=== PATIENT | female | born 1990 | race Caucasian/White ===

== ENCOUNTER 2022-08-13 18:29 | Outpatient (CLI) | payer BC, SELFPAY | END 2022-08-13 18:30 | disposition home or self-care (01) | LOC: LAB 18:32 | PROVIDERS: PCP Obstetrics & Gynecology | DX: Z32.01 Encounter for pregnancy test, result positive (principal) | CPT/HCPCS: 36415; 84702 ==

== ENCOUNTER 2022-08-15 18:14 | Outpatient (CLI) | payer BC, SELFPAY | END 2022-08-15 18:15 | disposition home or self-care (01) | PROVIDERS: PCP Obstetrics & Gynecology; Visit Provider Family Medicine | DX: Z32.01 Encounter for pregnancy test, result positive (principal) | CPT/HCPCS: 36415; 84702 ==

== ENCOUNTER 2022-08-20 17:50 | Emergency (ER) | payer BC, SELFPAY ==
[2022-08-20] VITALS (15 sets, daily range): BP systolic 125–169; BP diastolic 55–87; PULSE 77–122; RESP 20; TEMP 36.6; O2SAT 96–98; BMI 49.6
[2022-08-20] MEDS: 0.9 % SODIUM CHLORIDE 1000 ml 1,000 ML IV (19:00)
--- NOTE | 2022-08-20 19:05 | ED.NURSE ---
Products of conception removed in ER sent to lab.
[2022-08-20 19:06] LABS: Basophils Percent Auto 0.6 % (0.0-3.0); Eosinophils Percent Auto 2.3 % (0.0-7.0); Hematocrit 42.9 % (33.0-51.0); Immature Granulocytes Pct Auto 0.2 %; Lymphocytes Percent Auto 31.6 % (20-44); Mean Corpuscular HGB Conc 35 gm/dL (32-36); Mean Corpuscular Hemoglobin 32 pg (26-34); Mean Corpuscular Volume 93 fL (80-100); Monocytes Percent Auto 5.9 % (0.0-11.0); Neutrophils Percent Auto 59.4 % (42.0-72.0); Platelet Count* 433 K/uL (140-440); RDW Coefficient of Variation % 12.2 % (11.5-15.5); Red Blood Count 4.64 m/uL (4.00-5.20)
[2022-08-20 19:17] LABS: Slide Review Reflex No
[2022-08-20 19:20] LABS: Albumin* 4.4 g/dL (3.3-5.0); Chloride* 108 mmol/L (96-114)
[2022-08-20 19:21] LABS: Potassium* 3.5 mmol/L (3.6-5.1); Sodium* 140 mmol/L (135-149)
[2022-08-20 19:23] LABS: Alkaline Phosphatase* 52 U/L (40-150); Aspartate Amino Transferase* 28 U/L (12-35); Bilirubin Direct* 0.1 mg/dL (0.0-0.5); Bilirubin Total* 0.6 mg/dL (0.1-1.5); Blood Urea Nitrogen* 17 mg/dL (5-24); Carbon Dioxide* 24 mmol/L (20-32); Est. Creatinine Clearance* 66.81; Estimated Glomerular Filt Rate 77 ml/min; Glucose* 105 mg/dL (60-115); INR 0.87 (0.91-1.10); Partial Thromboplastin Time* 30 Seconds (23-33); Prothrombin Time 12.4 Seconds; Total Protein* 7.3 g/dL (6.0-8.3)
[2022-08-20 19:24] LABS: Alanine Aminotransferase* 45 U/L (4-35); Calcium* 9.8 mg/dL (8.4-10.6)
--- NOTE | 2022-08-20 19:50 | CRLHL7_ITS ---
For Patients: As a result of the Century Cures Act, medical imaging exams and procedure reports are released immediately into your electronic medical record. You may view this report before your referring provider. If you have questions, please contact your health care provider. INDICATION: Vaginal bleeding after recent miscarriage TECHNIQUE: Ultrasound pelvis transvaginal for better assessment or to better visualize the endometrium. Real-time sonographic images with spectral and color Doppler imaging of the ovaries were obtained. COMPARISON: None FINDINGS: Uterus: 13.1 x 5.1 x 6.2 cm. Normal echotexture of the myometrium. No masses. Endometrium: Transvaginal imaging was performed to better evaluate the endometrium. 1.6 cm in thickness. The endometrium is vascular. No sign of endometrial mass or fluid. Right ovary: Not seen. Left ovary: 2.2 x 1.6 x 2.2 cm. 1.0 x 1.4 x 1.0 cm simple cyst on the left ovary. There is also a complex cyst on the left ovary measuring 1.4 x 1.4 x 1.1 cm. Normal arterial and venous blood flow. Cul-de-sac: No significant free fluid. IMPRESSION: Thickened, vascular endometrium. This could represent retained products of conception. Recommend gynecology consultation. The right ovary is not seen on this exam. Complex cyst on the left ovary, likely hemorrhagic cyst in a patient of this age. Dictated by Christina Méndez MD @ 08/20/2022 10:17:58 PM (Electronically Signed)
--- NOTE | 2022-08-20 20:10 | ED_ITS ---
HPI - General Adult General Date Seen: 08/20/22 <Stephanie Emmanuel MD - Last Filed: 08/22/22 19:45> Chief complaint: Vaginal Bleeding <Stephanie Emmanuel MD - Last Filed: 08/22/22 19:45> Stated complaint: Miscarrying, possible hemerage <Stephanie Emmanuel MD - Last Filed: 08/22/22 19:45> Time Seen by Provider: 08/20/22 18:13 <Stephanie Emmanuel MD - Last Filed: 08/22/22 19:45> Source: patient <Stephanie Emmanuel MD - Last Filed: 08/22/22 19:45> Mode of arrival: ambulatory <Stephanie Emmanuel MD - Last Filed: 08/22/22 19:45> Limitations: no limitations <Stephanie Emmanuel MD - Last Filed: 08/22/22 19:45> History of Present Illness HPI narrative: Patient is a 32-year-old at about 9 weeks with a known demise at about 5 and half weeks. She says this was a twin gestation, she says she was told that both pregnancies were in 1 sac. She says on Tuesday she had some very light bleeding start, but today around 430 she had onset of heavy bleeding, through a pad an hour. Some cramping as well. No fevers. No vomiting. She notes that she had hemorrhage with both of her previous pregnancies, requiring it sounds like bi-manual intrauterine massage an intrauterine Pitocin. She did not require operative care after either . She is not on any blood thinners. <Stephanie Emmanuel MD - Last Filed: 08/22/22 19:45> Related Data Allergies/adverse reactions: Allergies Allergy/AdvReac Type Severity Reaction Status Date / Time Sulfa (Sulfonamide Allergy Verified 08/20/22 17:57 Antibiotics) <Stephanie Emmanuel MD - Last Filed: 08/22/22 19:45> Review of Systems Status of ROS: Reports: 10 or more systems reviewed and unremarkable except as noted in History and below <Stephanie Emmanuel MD - Last Filed: 08/22/22 19:45> Exam Narrative: Exam Narrative: Vital signs as noted above. In general, an alert, well-appearing patient. Head: Normocephalic, atraumatic. Eyes: Pupils are equal reactive. Extraocular movements are full. Conjunctivae are normal. ENT: Mucous membranes are moist. Throat is normal. Neck: Supple without lymphadenopathy. Heart: Regular rate and rhythm. No murmur or rub. Lungs: Clear bilaterally. No increased work of breathing, crackles or wheezes. Abdomen: Soft and nontender. No organomegaly. : Pelvic exam reveals a small amount of liquid blood, some moderate clot and a tissue product consistent with a gestational sac. Extremities: Well perfused. No edema. No calf tenderness. Pulses intact. Neurologic: Patient is alert and oriented to person and place. Speech is fluent. Face is symmetric. Moves all extremities equally. Affect: Normal. Skin: Warm and dry. Well perfused. <Stephanie Emmanuel MD - Last Filed: 08/22/22 19:45> Const: Vital Signs, click to edit/add: Vital Signs - 24 hr 08/20/22 17:58 08/20/22 20:02 08/20/22 20:03 Temperature 98 F Pulse Rate 80 78 Pulse Rate [Pulse Oximeter] 122 H Respiratory Rate 20 Blood Pressure 125/85 Blood Pressure [Ri ght Upper Arm] 169/87 H Pulse Oximetry 98 98 98 Oxygen Delivery Me thod Room Air 08/20/22 20:15 08/20/22 20:30 08/20/22 20:32 Temperature Pulse Rate 86 80 89 Pulse Rate [Pulse Oximeter] Respiratory Rate Blood Pressure 141/70 H Blood Pressure [Ri ght Upper Arm] Pulse Oximetry 98 97 98 Oxygen Delivery Me thod 08/20/22 20:45 Temperature Pulse Rate 82 Pulse Rate [Pulse Oximeter] Respiratory Rate Blood Pressure Blood Pressure [Ri ght Upper Arm] Pulse Oximetry 97 Oxygen Delivery Me thod <Stephanie Emmanuel MD - Last Filed: 08/22/22 19:45> Vital Signs, click to edit/add: Vital Signs - 24 hr 08/20/22 17:58 08/20/22 20:02 08/20/22 20:03 Temperature 98 F Pulse Rate 80 78 Pulse Rate [Pulse Oximeter] 122 H Respiratory Rate 20 Blood Pressure 125/85 Blood Pressure [Ri ght Upper Arm] 169/87 H Pulse Oximetry 98 98 98 Oxygen Delivery Me thod Room Air 08/20/22 20:15 08/20/22 20:30 08/20/22 20:32 Temperature Pulse Rate 86 80 89 Pulse Rate [Pulse Oximeter] Respiratory Rate Blood Pressure 141/70 H Blood Pressure [Ri ght Upper Arm] Pulse Oximetry 98 97 98 Oxygen Delivery Me thod 08/20/22 20:45 Temperature Pulse Rate 82 Pulse Rate [Pulse Oximeter] Respiratory Rate Blood Pressure Blood Pressure [Ri ght Upper Arm] Pulse Oximetry 97 Oxygen Delivery Me thod <Francis Wagner MD - Last Filed: 08/20/22 22:31> Documenting provider has reviewed patient's vital signs: yes <Stephanie Emmanuel MD - Last Filed: 08/22/22 19:45> Course Course Hospital Course: We placed an IV here. Started a L of normal saline. I looked with the bedside ultrasound, transabdominally I do see some debris of some kind in the uterus. After her pelvic exam I did look again and I still see the same debris there. Her cervix is open, clearly she is in the midst of her miscarriage. Labs were drawn, white count is 11.6, hemoglobin is stable at 15. INR is 0.87, metabolic panel is unremarkable. Quant is 15,000. Blood type is pending. I talked with Dr. Meyer, who is on-call for OB Gyne. She requested a formal ultrasound to determine whether not patient should go to the operating room for D and C. This is pending at this time. Patient will be signed out to Dr. Wagner to follow-up on the ultrasound and for final disposition and plan. <Stephanie Emmanuel MD - Last Filed: 08/22/22 19:45> Reevaluation(s) Reevaluation #1: Labs stable. Ultrasound shows no retained products in the uterus. Lining is 16 mm. <Francis Wagner MD - Last Filed: 08/20/22 22:31> Time: 22:19 <Francis Wagner MD - Last Filed: 08/20/22 22:31> Reevaluation #2: As I was signing this chart I reviewed the final disposition as well as the ultrasound. It does appear that OB was consulted prior to disposition and that bleeding was improved, however according to the ultrasound read available at this time, the ultrasound did not rule out the possibility of retained products of conception. I called the patient today when I reviewed the chart and left a message asking her to call back if she was having any concerns, but have not heard back from her. <Stephanie Emmanuel MD - Last Filed: 08/22/22 19:45> Time: 19:37 <Stephanie Emmanuel MD - Last Filed: 08/22/22 19:45> Consultations Consultation #2: Results given to oncall OB. <Francis Wagner MD - Last Filed: 08/20/22 22:31> Time: 22:19 <Francis Wagner MD - Last Filed: 08/20/22 22:31> Vital Signs Vital signs: Initial Vital Signs Temperature 98 F 08/20/22 17:58 Temperature Source Temporal Artery Scan 08/20/22 17:58 Pulse Rate 122 H 08/20/22 17:58 Pulse Rhythm 08/20/22 17:58 Respiratory Rate 20 08/20/22 17:58 Blood Pressure 169/87 H 08/20/22 17:58 Blood Pressure Mean 114 08/20/22 17:58 Blood Pressure Position Sitting 08/20/22 17:58 Pulse Oximetry 98 08/20/22 17:58 Oxygen Delivery Method 08/20/22 17:58 Vital Signs Temperature 98 F 08/20/22 17:58 Pulse Rate 122 H 08/20/22 17:58 Respiratory Rate 20 08/20/22 17:58 Blood Pressure 169/87 H 08/20/22 17:58 Pulse Oximetry 98 08/20/22 17:58 Oxygen Delivery Method 08/20/22 17:58 Temperature 98 F 08/20/22 17:58 Pulse Rate 90 08/20/22 22:30 Respiratory Rate 20 08/20/22 17:58 Blood Pressure 128/55 L 08/20/22 21:03 Pulse Oximetry 97 08/20/22 22:30 Oxygen Delivery Method 08/20/22 17:58 <Stephanie Emmanuel MD - Last Filed: 08/22/22 19:45> Initial Vital Signs Temperature 98 F 08/20/22 17:58 Temperature Source Temporal Artery Scan 08/20/22 17:58 Pulse Rate 122 H 08/20/22 17:58 Pulse Rhythm 08/20/22 17:58 Respiratory Rate 20 08/20/22 17:58 Blood Pressure 169/87 H 08/20/22 17:58 Blood Pressure Mean 114 08/20/22 17:58 Blood Pressure Position Sitting 08/20/22 17:58 Pulse Oximetry 98 08/20/22 17:58 Oxygen Delivery Method 08/20/22 17:58 Vital Signs Temperature 98 F 08/20/22 17:58 Pulse Rate 122 H 08/20/22 17:58 Respiratory Rate 20 08/20/22 17:58 Blood Pressure 169/87 H 08/20/22 17:58 Pulse Oximetry 98 08/20/22 17:58 Oxygen Delivery Method 08/20/22 17:58 Temperature 98 F 08/20/22 17:58 Pulse Rate 90 08/20/22 22:30 Respiratory Rate 08/20/22 17:58 Blood Pressure 128/55 L 08/20/22 21:03 Pulse Oximetry 97 08/20/22 22:30 Oxygen Delivery Method 08/20/22 17:58 <Francis Wagner MD - Last Filed: 08/20/22 22:31> Medical Decision Making MDM Narrative Medical decision making narrative: Pt is a 32 year old woman who likely had a recent miscarriage. Pt passed a small amount of tissue and bleeding improved. Pt labs reassuring. Ultrasound shows no retained products. Case discussed with OBGYN. 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 <Francis Wagner MD - Last Filed: 08/20/22 22:31> Lab Data Labs: Lab Results 08/20/22 08/20/22 08/20/22 Range/Units 18:25 18:25 18:25 WBC 11.60 H (4.50-11.00) K/uL RBC 4.64 (4.00-5.20) m/uL Hgb 15.0 (12.0-16.0) gm/dL Hct 42.9 (33.0-51.0) % MCV 93 (80-100) fL MCH 32 (26-34) pg MCHC 35 (32-36) gm/dL RDW Coeff of Michael 12.2 (11.5-15.5) % Plt Count 433 (140-440) K/uL Neut % (Auto) 59.4 (42.0-72.0) % Lymph % (Auto) 31.6 (20-44) % [place] % (Auto) 5.9 (0.0-11.0) % Eos % (Auto) 2.3 (0.0-7.0) % Baso % (Auto) 0.6 (0.0-3.0) % Neut # (Auto) 6.90 (1.7-7.0) K/uL Lymph # (Auto) 3.70 H (0.90-2.90) K/uL [place] # (Auto) 0.70 (0.00-0.90) K/UL Eos # (Auto) 0.30 (0.00-0.50) K/uL Baso # (Auto) 0.10 (0.00-0.30) K/uL INR 0.87 L (0.91-1.10) APTT 30 (23-33) Seconds Sodium 140 (135-149) mmol/L Potassium 3.5 L (3.6-5.1) mmol/L Chloride 108 (96-114) mmol/L Carbon Dioxide 24 (20-32) mmol/L BUN 17 (5-24) mg/dL Creatinine 1.0 (0.5-1.5) mg/dL Estimated Creat Clear 66.81 Estimated GFR 77 ml/min Glucose 105 (60-115) mg/dL Calcium 9.8 (8.4-10.6) mg/dL Total Bilirubin 0.6 (0.1-1.5) mg/dL Direct Bilirubin 0.1 (0.0-0.5) mg/dL AST 28 (12-35) U/L ALT 45 H (4-35) U/L Alkaline Phosphatase 52 (40-150) U/L Total Protein 7.3 (6.0-8.3) g/dL Albumin 4.4 (3.3-5.0) g/dL HCG, Quant 95341.00 mIU/mL SARS-CoV-2 (PCR) (Negative) Blood Type Antibody Screen 08/20/22 08/20/22 Range/Units 19:21 20:10 WBC (4.50-11.00) K/uL RBC (4.00-5.20) m/uL Hgb (12.0-16.0) gm/dL Hct (33.0-51.0) % MCV (80-100) fL MCH (26-34) pg MCHC (32-36) gm/dL RDW Coeff of Michael (11.5-15.5) % Plt Count (140-440) K/uL Neut % (Auto) (42.0-72.0) % Lymph % (Auto) (20-44) % [place] % (Auto) (0.0-11.0) % Eos % (Auto) (0.0-7.0) % Baso % (Auto) (0.0-3.0) % Neut # (Auto) (1.7-7.0) K/uL Lymph # (Auto) (0.90-2.90) K/uL [place] # (Auto) (0.00-0.90) K/UL Eos # (Auto) (0.00-0.50) K/uL Baso # (Auto) (0.00-0.30) K/uL INR (0.91-1.10) APTT (23-33) Seconds Sodium (135-149) mmol/L Potassium (3.6-5.1) mmol/L Chloride (96-114) mmol/L Carbon Dioxide (20-32) mmol/L BUN (5-24) mg/dL Creatinine (0.5-1.5) mg/dL Estimated Creat Clear Estimated GFR ml/min Glucose (60-115) mg/dL Calcium (8.4-10.6) mg/dL Total Bilirubin (0.1-1.5) mg/dL Direct Bilirubin (0.0-0.5) mg/dL AST (12-35) U/L ALT (4-35) U/L Alkaline Phosphatase (40-150) U/L Total Protein (6.0-8.3) g/dL Albumin (3.3-5.0) g/dL HCG, Quant mIU/mL SARS-CoV-2 (PCR) Negative SARS-CoV-2 (Negative) Blood Type O Positive Antibody Screen NEGATIVE <Stephanie Emmanuel MD - Last Filed: 08/22/22 19:45> Lab Results 08/20/22 08/20/22 08/20/22 Range/Units 18:25 18:25 18:25 WBC 11.60 H (4.50-11.00) K/uL RBC 4.64 (4.00-5.20) m/uL Hgb 15.0 (12.0-16.0) gm/dL Hct 42.9 (33.0-51.0) % MCV 93 (80-100) fL MCH 32 (26-34) pg MCHC 35 (32-36) gm/dL RDW Coeff of Michael 12.2 (11.5-15.5) % Plt Count 433 (140-440) K/uL Neut % (Auto) 59.4 (42.0-72.0) % Lymph % (Auto) 31.6 (20-44) % [place] % (Auto) 5.9 (0.0-11.0) % Eos % (Auto) 2.3 (0.0-7.0) % Baso % (Auto) 0.6 (0.0-3.0) % Neut # (Auto) 6.90 (1.7-7.0) K/uL Lymph # (Auto) 3.70 H (0.90-2.90) K/uL [place] # (Auto) 0.70 (0.00-0.90) K/UL Eos # (Auto) 0.30 (0.00-0.50) K/uL Baso # (Auto) 0.10 (0.00-0.30) K/uL INR 0.87 L (0.91-1.10) APTT 30 (23-33) Seconds Sodium 140 (135-149) mmol/L Potassium 3.5 L (3.6-5.1) mmol/L Chloride 108 (96-114) mmol/L Carbon Dioxide 24 (20-32) mmol/L BUN 17 (5-24) mg/dL Creatinine 1.0 (0.5-1.5) mg/dL Estimated Creat Clear 66.81 Estimated GFR 77 ml/min Glucose 105 (60-115) mg/dL Calcium 9.8 (8.4-10.6) mg/dL Total Bilirubin 0.6 (0.1-1.5) mg/dL Direct Bilirubin 0.1 (0.0-0.5) mg/dL AST 28 (12-35) U/L ALT 45 H (4-35) U/L Alkaline Phosphatase 52 (40-150) U/L Total Protein 7.3 (6.0-8.3) g/dL Albumin 4.4 (3.3-5.0) g/dL HCG, Quant 86846.00 mIU/mL SARS-CoV-2 (PCR) (Negative) Blood Type Antibody Screen 08/20/22 08/20/22 Range/Units 19:21 20:10 WBC (4.50-11.00) K/uL RBC (4.00-5.20) m/uL Hgb (12.0-16.0) gm/dL Hct (33.0-51.0) % MCV (80-100) fL MCH (26-34) pg MCHC (32-36) gm/dL RDW Coeff of Michael (11.5-15.5) % Plt Count (140-440) K/uL Neut % (Auto) (42.0-72.0) % Lymph % (Auto) (20-44) % [place] % (Auto) (0.0-11.0) % Eos % (Auto) (0.0-7.0) % Baso % (Auto) (0.0-3.0) % Neut # (Auto) (1.7-7.0) K/uL Lymph # (Auto) (0.90-2.90) K/uL [place] # (Auto) (0.00-0.90) K/UL Eos # (Auto) (0.00-0.50) K/uL Baso # (Auto) (0.00-0.30) K/uL INR (0.91-1.10) APTT (23-33) Seconds Sodium (135-149) mmol/L Potassium (3.6-5.1) mmol/L Chloride (96-114) mmol/L Carbon Dioxide (20-32) mmol/L BUN (5-24) mg/dL Creatinine (0.5-1.5) mg/dL Estimated Creat Clear Estimated GFR ml/min Glucose (60-115) mg/dL Calcium (8.4-10.6) mg/dL Total Bilirubin (0.1-1.5) mg/dL Direct Bilirubin (0.0-0.5) mg/dL AST (12-35) U/L ALT (4-35) U/L Alkaline Phosphatase (40-150) U/L Total Protein (6.0-8.3) g/dL Albumin (3.3-5.0) g/dL HCG, Quant mIU/mL SARS-CoV-2 (PCR) Negative SARS-CoV-2 (Negative) Blood Type O Positive Antibody Screen NEGATIVE <Francis Wagner MD - Last Filed: 08/20/22 22:31> Discharge Plan Discharge Clinical Impression: Complete miscarriage <Stephanie Emmanuel MD - Last Filed: 08/22/22 19:45> Condition: Stable <Stephanie Emmanuel MD - Last Filed: 08/22/22 19:45> Instructions: Miscarriage (ED) <Stephanie Emmanuel MD - Last Filed: 08/22/22 19:45> Additional Instructions: Tylenol Motrin Follow up with your OBGYN in the next 2 weeks. <Stephanie Emmanuel MD - Last Filed: 08/22/22 19:45> Activity Level: Activity as Tolerated <Stephanie Emmanuel MD - Last Filed: 08/22/22 19:45> Activity as Tolerated <Francis Wagner MD - Last Filed: 08/20/22 22:31> Discharge Diet: Regular <Stephanie Emmanuel MD - Last Filed: 08/22/22 19:45> Regular <Francis Wagner MD - Last Filed: 08/20/22 22:31> Follow Up/Referrals: Kaitlynn Almazan MD [Primary Care Provider] - <Stephanie Emmanuel MD - Last Filed: 08/22/22 19:45> Stand Alone Forms: [facility] Info Instructions <Stephanie Emmanuel MD - Last Filed: 08/22/22 19:45>
[2022-08-20 21:03] LABS: SARS PCR* Negative SARS-CoV-2 (Negative)
--- NOTE | 2022-08-20 22:40 | ED.NURSE ---
Pt did not use the bathroom during ER visit and did not indicate that vaginal bleeding was heavy. Pt was accompanied by her .
== END 2022-08-20 22:43 | disposition home or self-care (01) ==
PROVIDERS: Emergency Medicine; Emergency Provider Internal Medicine; PCP Obstetrics & Gynecology
DX: O03.9 Complete or unspecified spontaneous abortion without complication (principal)
CPT/HCPCS: 36415; 76830; 80048; 80076; 84702; 85025; 85610; 85730; 86850; 86900; 86901; 87635; 88305; 93976; 99283; 99284; J7030

== ENCOUNTER 2024-05-26 23:22 | Emergency (ER) | payer BC, SELFPAY ==
[2024-05-26 23:27] VITALS: BP 155/78; PULSE 135; RESP 20; TEMP 36.3; O2SAT 99; BMI 38.1
--- NOTE | 2024-05-27 00:10 | ED.GENADULT ---
HPI - General Adult General Chief complaint: Abdominal Pain Stated complaint: Abdominal/back pain Time Seen by Provider: 05/26/24 23:54 Source: patient Mode of arrival: ambulatory Limitations: no limitations History of Present Illness HPI narrative: 34-year-old female presents the emergency department for evaluation of epigastric abdominal pain radiating to the upper back bilaterally. Symptoms started about 1 hour prior to arrival. Pain lasted about an hour and at the time of my interval, her pain has resolved. No prior episodes similar to this. Does have a strong family history of gallbladder disease. She is on tirzepatide for weight loss and has been so for about 18 months. No prior history of abdominal surgeries. No prior history of pancreatitis. Symptoms started a couple of hours after Thanksgiving family dinner. No fever. No hematuria. No vomiting. Tried taking a Vistaril which she has for anxiety which may have improved her symptoms somewhat. She also tried her albuterol inhaler because it did hurt to take a deep breath. She did not feel short of breath. Did not try Tylenol or ibuprofen. Past medical history notable for obesity, anxiety. Has p.r.n. hydroxyzine and is on injectable G LP inhibitor medication. Allergies are to sulfas. Nonsmoker. ROS is notable for the GI symptoms as above only, otherwise denies times 12 systems. Related Data Allergies Allergy/AdvReac Type Severity Reaction Status Date / Time Sulfa (Sulfonamide Allergy Verified 08/20/22 17:57 Antibiotics) Exam Const: Vital Signs, click to edit/add: Vital Signs - 24 hr 05/26/24 23:27 Temperature 97.3 F L Pulse Rate [Left P ulse Oximeter] 135 H Respiratory Rate 20 Blood Pressure [Ri ght Upper Arm] 155/78 H Pulse Oximetry 99 Oxygen Delivery Me thod Room Air Documenting provider has reviewed patient's vital signs: yes Common normals: no apparent distress and alert General appearance: cooperative and comfortable HENMT: Common normals: normocephalic Head and scalp: normocephalic Face and sinus: normal facial exam Mouth: oral and palatal mucosa normal Throat: posterior oropharynx normal Eye: Common normals: conjunctivae normal General eye: normal appearance of both eyes Conjunctiva: conjunctiva(e) normal Neck & C-Spine: Common normals: full ROM and no lymphadenopathy Resp: Common normals: normal respiratory effort, no use of accessory muscles and clear to auscultation bilaterally Effort & inspection: able to speak in complete sentences Auscultation: clear to auscultation bilaterally Cardio: Common normals: regular rate, regular rhythm, S1 normal heart sound, S2 normal heart sound and no murmurs Rate: regular rate Rhythm: regular rhythm Heart sounds: S1 normal and S2 normal GI: Common normals: Normal to inspection, nondistended, normoactive bowel sounds present, soft to palpation, non-tender and no hepatosplenomegaly Palpation: soft and no hepatosplenomegaly : Common normals: no CVA tenderness Bladder/kidney exam: no CVA tenderness Back & Pelvis: Common normals: no CVA tenderness Extremity: Common normals: normal to inspection and no pedal edema Neuro: Sensorium/orientation: alert Speech: speech normal Motor exam: no movement abnormalities noted Psych: Common normals: thought process normal and speech normal Attitude: engaged Speech: normal speech Mood and affect: euthymic mood Thought process: normal thought process Insight: insight good Judgement: judgment good Skin: Common normals: no rashes or lesions noted General skin exam: no rashes or lesions noted Course Course ED Course: 34-year-old female with epigastric area abdominal pain radiating to the back suspicious for biliary colic, gallstone or pancreatitis. Symptoms have largely improved which is more suspicious for an episode of biliary colic. Strong family history in use injectable weight loss medications does increase her risk as well. Cannot exclude colitis, gastritis, esophageal spasm, bowel obstruction, amongst others. She is feeling better at this time, I would recommend we do some basic labs including a lipase, the liver enzymes, CBC and CRP. If labs abnormal, recommend CT scan. We do not have overnight ultrasound but could hold her until morning for 1 if needed. She declines pain or nausea medication at this time as her symptoms have resolved. Elevate her no to notify the nurse of her symptoms worsen we will address this if needed. Reevaluation(s) Time of Reevaluation #1: 02:26 Reevaluation #1: Patient remains asymptomatic for over 2 hours here in the ED. labs reviewed. Mild leukocytosis but no signs of obstructive biliary pattern, elevated lipase are elevated CRP. Discussed that an ultrasound is a good idea but patient would need to wait in the ED in till after 630 as it is not emergent. She is feeling better and agrees with me that ultrasound would not likely record changer tester overnight. It would certainly help us know if there were gallstones or other underlying pathology but since she is asymptomatic, afebrile at this time, we would not recommend surgery. I suspect that this was either an episode of biliary colic she had a gallstone that has become unstuck. Patient is very reliable to come back if she has return of symptoms, fever, vomiting. She verbalizes understanding and agreement of this plan. She does not want to wait in the ED for ultrasound. She has not required any pain medication. Written instructions provided. She verbalizes understanding and agreement. Vital Signs Vital signs: Initial Vital Signs Temperature 97.3 F L 05/26/24 23:27 Temperature Source Temporal Artery Scan 05/26/24 23:27 Pulse Rate 135 H 05/26/24 23:27 Pulse Rhythm Regular 05/26/24 23:27 Respiratory Rate 20 05/26/24 23:27 Blood Pressure 155/78 H 05/26/24 23:27 Blood Pressure Mean 103 05/26/24 23:27 Blood Pressure Position Sitting 05/26/24 23:27 Pulse Oximetry 99 05/26/24 23:27 Oxygen Delivery Method Room Air 05/26/24 23:27 Vital Signs Temperature 97.3 F L 05/26/24 23:27 Pulse Rate 135 H 05/26/24 23:27 Respiratory Rate 20 05/26/24 23:27 Blood Pressure 155/78 H 05/26/24 23:27 Pulse Oximetry 99 05/26/24 23:27 Oxygen Delivery Method Room Air 05/26/24 23:27 Temperature 97.3 F L 05/26/24 23:27 Pulse Rate 135 H 05/26/24 23:27 Respiratory Rate 20 05/26/24 23:27 Blood Pressure 155/78 H 05/26/24 23:27 Pulse Oximetry 99 05/26/24 23:27 Oxygen Delivery Method Room Air 05/26/24 23:27 Medical Decision Making Lab Data Lab results reviewed: Yes I reviewed the patient's lab results Lab results narrative: Leukocytosis with left shift but no signs of obstructive biliary pattern. AST and ALT are mildly elevated but more consistent with typical fatty liver. CRP is normal. Patient remains asymptomatic. Labs: Lab Results 05/27/24 05/27/24 Range/Units 00:09 00:33 WBC 14.67 H (4.50-11.00) K/uL RBC 4.39 (4.00-5.20) m/uL Hgb 14.1 (12.0-16.0) gm/dL Hct 39.8 (33.0-51.0) % MCV 91 (80-100) fL MCH 32 (26-34) pg MCHC 35 (32-36) gm/dL RDW Coeff of Michael 11.9 (11.5-15.5) % Plt Count 374 (140-440) K/uL Neut % (Auto) 77.5 H (42.0-72.0) % Lymph % (Auto) 15.6 L (20-44) % [place] % (Auto) 5.0 (0.0-11.0) % Eos % (Auto) 1.4 (0.0-7.0) % Baso % (Auto) 0.3 (0.0-3.0) % Neut # (Auto) 11.40 H (1.7-7.0) K/uL Lymph # (Auto) 2.30 (0.90-2.90) K/uL [place] # (Auto) 0.70 (0.00-0.90) K/UL Eos # (Auto) 0.20 (0.00-0.50) K/uL Baso # (Auto) 0.00 (0.00-0.30) K/uL Abs Immat Gran (auto) 0.00 (0.00-0.30) K/uL Imm/Tot Granulo (auto) 0.2 % Sodium 138 (135-149) mmol/L Potassium 3.6 (3.6-5.1) mmol/L Chloride 106 (96-114) mmol/L Carbon Dioxide 25 (20-32) mmol/L Anion Gap 7 (7-15) mEq/L BUN 15 (5-24) mg/dL Creatinine 1.1 (0.5-1.5) mg/dL Estimated Creat Clear 59.61 Estimated GFR 68 ml/min Glucose 100 (60-115) mg/dL Calcium 9.6 (8.4-10.6) mg/dL Total Bilirubin 0.7 (0.1-1.5) mg/dL AST 75 H (12-35) U/L ALT 60 H (4-35) U/L Alkaline Phosphatase 49 (40-150) U/L C-Reactive Protein < 0.5 L (0.5-1.0) mg/dL Total Protein 6.5 (6.0-8.3) g/dL Albumin 4.1 (3.3-5.0) g/dL Lipase 77 (23-300) U/L Urine Color Yellow (Yellow) Urine Appearance Clear (Clear) Urine pH 7.0 (5.0-8.5) Ur Specific [place] 1.010 (1.000-1.030) Urine Protein Negative (Negative) Urine Glucose (UA) Negative (Negative) Urine Ketones Negative (Negative) Urine Blood Negative (Negative) Urine Nitrite Negative (Negative) Urine Bilirubin Negative (Negative) Urine Urobilinogen 0.2 (0.2-1.0) Ur Leukocyte Esterase Negative (Negative) Urine HCG, Qual Negative (Negative) Discharge Plan Discharge Clinical Impression: Biliary colic Patient Disposition: Home w/ Parent or Adult Condition: Improved Instructions: Biliary Colic (ED) Additional Instructions: As we discussed, since her pain went away, this was most likely an episode of either biliary colic or a gallstone that has now passed. Your blood work does not show any signs of biliary obstruction like a persistently stuck gallstone. There is no elevation of your pancreatic enzymes. Your white blood cell count was a little bit elevated but your inflammatory markers were normal. I do have concerns that this could be an early gallbladder infection. So if you start running fever or have significant return of pain or persistent vomiting, I would want you to come back to the emergency department right away. As we discussed, I do not think we need to hold you in the ER for 5 hours to do an ultrasound since her pain has resolved. But please have a low threshold for coming back if the pain returns. It is okay to try Tylenol and ibuprofen at home. But if the pain is going on for more than 2 hours, please come in. As we discussed, the tophus part of these episodes is that they often happen unpredictably and not necessarily after the same foods. If you have persistent episodes, an elective resection of the gallbladder may be right for you and you would discuss this with your primary care doctor and they would refer to a local general surgeon. We would need to do the procedure more urgently if you start running a fever or have signs of persistent pain. Activity Level: No Restrictions Discharge Diet: Low Fat/Low Cholesterol Follow Up/Referrals: Kaitlynn Almazan MD [Staff Physician] - Stand Alone Forms: [employer] Info Instructions
[2024-05-27 01:07] LABS: Albumin* 4.1 g/dL (3.3-5.0); Chloride* 106 mmol/L (96-114); Sodium* 138 mmol/L (135-149)
[2024-05-27 01:08] LABS: Potassium* 3.6 mmol/L (3.6-5.1)
[2024-05-27 01:10] LABS: Bilirubin Total* 0.7 mg/dL (0.1-1.5); Creatinine* 1.1 mg/dL (0.5-1.5); Est. Creatinine Clearance* 59.61; Estimated Glomerular Filt Rate 68 ml/min
[2024-05-27 01:11] LABS: Alanine Aminotransferase* 60 U/L (4-35); Alkaline Phosphatase* 49 U/L (40-150); Anion Gap 7 mEq/L (7-15); Aspartate Amino Transferase* 75 U/L (12-35); Blood Urea Nitrogen* 15 mg/dL (5-24); Calcium* 9.6 mg/dL (8.4-10.6); Carbon Dioxide* 25 mmol/L (20-32); Glucose* 100 mg/dL (60-115); Lipase* 77 U/L (23-300); Total Protein* 6.5 g/dL (6.0-8.3)
[2024-05-27 01:32] LABS: C Reactive Protein* < 0.5 mg/dL (0.5-1.0)
[2024-05-27 01:57] LABS: Appearance Urine Clear (Clear); Bilirubin Urine Negative (Negative); Blood Urine Negative (Negative); Color Urine Yellow (Yellow); Glucose Urine Negative (Negative); Ketones Urine Negative (Negative); Leukocyte Esterase Urine Negative (Negative); Nitrite Urine Negative (Negative); Protein Urine Negative (Negative); Urobilinogen Urine 0.2 (0.2-1.0)
[2024-05-27 02:10] LABS: Ur HCG Qualitative* Negative (Negative)
[2024-05-27 02:12] LABS: Basophils Percent Auto 0.3 % (0.0-3.0); Eosinophils Percent Auto 1.4 % (0.0-7.0); Hematocrit 39.8 % (33.0-51.0); Hemoglobin* 14.1 gm/dL (12.0-16.0); Immature Granulocytes Pct Auto 0.2 %; Lymphocytes Percent Auto 15.6 % (20-44); Mean Corpuscular HGB Conc 35 gm/dL (32-36); Mean Corpuscular Hemoglobin 32 pg (26-34); Mean Corpuscular Volume 91 fL (80-100); Neutrophils Percent Auto 77.5 % (42.0-72.0); Platelet Count* 374 K/uL (140-440); RDW Coefficient of Variation % 11.9 % (11.5-15.5); Red Blood Count 4.39 m/uL (4.00-5.20); White Blood Count* 14.67 K/uL (4.50-11.00)
[2024-05-27 02:15] LABS: Slide Review Reflex No
== END 2024-05-27 02:30 | disposition home or self-care (01) ==
PROVIDERS: Emergency Provider Family Medicine; PCP Family Medicine
DX: K80.51 Calculus of bile duct without cholangitis or cholecystitis with obstruction (principal)
CPT/HCPCS: 36415; 80053; 81003; 81025; 83690; 85025; 86140; 99283; 99284

== ENCOUNTER 2024-07-26 07:40 | Day surgery (SDC) | payer BC, SELFPAY ==
[2024-07-26] VITALS (16 sets, daily range): BP systolic 82–159; BP diastolic 32–131; PULSE 65–122; RESP 16–22; TEMP 36.8–37.2; O2SAT 93–100; BMI 37.0
--- OUTSIDE RECORDS SUMMARY | 2024-07-26 07:44 | XMS_ITS | CCD ---
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
--- OUTSIDE RECORDS SUMMARY | 2024-07-26 07:44 | XMS_ITS ---
Author Name Interface, [id number] lity Address [address] [facility] [address] [address] Organization [facility] Address [address] [facility] [address] [address] Care Team Providers Care Windows Mobile Developer Name Role Phone Summer Funez Unavailab le Allergies and Adverse Reactions Medication/Group Name Reaction Severity Date Sulfa (Sulfonamide Antibiotics) 04/26/2019 Plan Date Type Value 04/26/2019 APPOINTMENT PSTOP - PO#1 DANIEL RT UPP BACK 04-04-19 PO#1 DANIEL RT UPP BACK 10- Reason for Visit PSTOP - PO#1 DANIEL RT UPP BACK 04-04-19 - PO#1 DANIEL RT UPP BACK 10- Encounters Date Name 04/26/2019 Malignant melanoma o f skin (disorder) Problems Diagnosis Status Date of Diagnosi s Melanoma in situ by body site (disorder) Active Malignant melanoma of skin (disorder) Active 03/13/2019 Vital Signs Date Type Value 04/26/2019 Body Temperature 97.70 04/26/2019 Heart Beat 76.00 04/26/2019 Oxygen Saturation 97.00 04/26/2019 Intravascular Systolic 137 04/26/2019 Intravascular Diastolic 90 04/26/2019 Pain Scale 0.00 04/26/2019 Height 63.00 04/26/2019 BMI 46.80 04/26/2019 BSA 2.18 04/26/2019 Weight 264.20
[2024-07-26] MEDS: 0.9 % SODIUM CHLORIDE 500 ML 500 ML 100 ML IV ×2 (08:20→10:01)
[2024-07-26] MEDS: SODIUM CHLORIDE 0.9 % (FLUSH) 10 ML SYRINGE IVF (08:20)
[2024-07-26 08:37] LABS: Ur HCG Qualitative* Negative (Negative)
[2024-07-26 08:49] LABS: Albumin* 4.3 g/dL (3.3-5.0)
[2024-07-26 08:52] LABS: Alanine Aminotransferase* 29 U/L (4-35); Alkaline Phosphatase* 36 U/L (40-150); Aspartate Amino Transferase* 20 U/L (12-35); Bilirubin Direct* 0.2 mg/dL (0.0-0.5); Bilirubin Total* 1.4 mg/dL (0.1-1.5); Total Protein* 6.8 g/dL (6.0-8.3)
[2024-07-26] MEDS: CEFAZOLIN 2 GM INJ IVP (09:20)
[2024-07-26] MEDS: BUPIVACAINE 0.25% 30 ML INJECTION (10:12)
[2024-07-26] MEDS: hydrOXYzine pamoate 25 MG CAPSULE PO (10:32)
--- NOTE | 2024-07-26 10:33 | W.ANESCHARGE ---
Anesthesia Charges Start Date/Time Anesthesia Start Date: 07/26/24 Anesthesia Start Time: 09:09 Stop Date/Time Anesthesia Stop Date: 07/26/24 Anesthesia Stop Time: 10:33 Coding CPT Codes CPT Codes: ANESTH SURG UPPER ABDOMEN - 83056 ([id number]) P2 - PATIENT W/MILD SYST DISEASE, QK - SHEET METAL LAYOUT MECHANIC 2-4 CNCRNT ANES PROC, QX - DENTAL DETAIL REPRESENTATIVE SVC W/ MD MED DIRECTION
--- NOTE | 2024-07-26 10:34 | W.ANESCHARGE ---
Anesthesia Charges Start Date/Time Anesthesia Start Date: 07/26/24 Anesthesia Start Time: 09:09 Stop Date/Time Anesthesia Stop Date: 07/26/24 Anesthesia Stop Time: 10:33 Coding CPT Codes CPT Codes: ANESTH SURG UPPER ABDOMEN - 85162 ([id number]) QK - RADIATION ONCOLOGIST 2-4 CNCRNT ANES PROC, QX - JUVENILE PROBATION OFFICER SVC W/ MD MED DIRECTION, P2 - PATIENT W/MILD SYST DISEASE
[2024-07-26] MEDS: HYDROmorphone 0.5 mg/0.5 ml inj IVP (10:39)
[2024-07-26] MEDS: MIDAZOLAM HCL 1 MG/ML inj 2 MG IVP (10:43)
--- NOTE | 2024-07-26 10:58 | PM.GSPRC ---
Operative Note Date of procedure: 07/26/24 Pre-op diagnosis: Biliary colic Post-op diagnosis: Same Type of Procedure: Laparoscopic cholecystectomy Indications: The patient is a 34-year-old female who developed severe epigastric abdominal pain after Thanksgiving. She was seen in the emergency department and AST and ALT were very mildly elevated at 75 and 60. There was no obstructive pattern to her labs. She was discharged home with follow-up instructions. She later underwent ultrasound of her gallbladder and was found to have gallstones. Common bile duct was 6 mm which is upper limits of a durable for her age. We discussed cholecystectomy as well as risks and benefits. She agreed to proceed. Initially, we planned for possible cholangiogram, however on the day of surgery her liver tests were all within normal limits. Procedure Description: After discussing the risks and benefits of the procedure, the patient signed informed consent.? The operative site was marked and the patient was brought to the operating room and placed on the operating table in supine position.? Care was taken to pad the patient's pressure points.?? The patient was then intubated by anesthesia.?? The operative site was then prepped and draped in the usual sterile fashion.? A time-out was then performed. Entrance to the abdomen was attempted via a 5 mm Visiport in the left upper quadrant. The layers of the abdominal wall were visualized. It was not clear that it had crossed through to the peritoneum, however, given the patient's habitus, the port was then quite far. I elected to enter the abdomen with a Flores technique. Incision was made below the umbilicus. The subcutaneous tissue was spread bluntly and dissection was taken down to the fascia. Fascia was grasped between 2 Bartolo clamps. This was incised. The peritoneum was then incised and entered. Klever port was placed in the abdomen was insufflated. This was surveyed. There was a small amount of staining and a pinpoint area where the peritoneum had been penetrated with the initial left upper quadrant port placement, however there was no blood on the omentum below. The 5 port was placed under direct vision. Two additional 5 mm working ports were placed along the right costal margin under direct vision. The omentum below the left upper quadrant port site was then examined and lifted up. There was no sign of blood staining or injury below the omentum from the initial port attempt. The patient was then placed in reverse Trendelenburg position with the right side up. The gallbladder fundus was grasped and retracted cephalad. A small amount of dissection was needed to free omental adhesions from the gallbladder. The infundibulum was grasped. A combination of hook cautery and blunt dissection was used to carefully dissect out the cystic duct and artery until they could clearly be seen entering the gallbladder without any intervening structures. The gallbladder was dissected off the cystic plate to achieve the critical view. Once this was achieved the cystic duct and artery were each clipped with 2 clips proximally and 1 clip distally and transected with the scissors. The gallbladder was then taken off of the liver bed and removed from the abdomen using an Endo-Catch bag. The gallbladder bed was surveyed for hemostasis which appeared adequate. A small amount of bile which had spilled was suctioned from the abdomen. The remaining ports were then removed and the abdomen desufflated. The umbilical port site fascia was closed with 0 Vicryl [id number] sutures. The skin was closed with absorbable subcuticular suture. Sterile dressings were then applied. Instrument sponge and needle counts were correct at the end of the case. The patient was then woken and transferred to the PACU in stable condition. ? The patient tolerated the procedure well. Findings: Gallbladder with stones noted inside. Omental adhesions. Anesthesia: GETA Surgeon: Antonietta Ponce MD Estimated blood loss (mL): 5 Specimen: Gallbladder Condition: stable Disposition: PACU
[2024-07-26] MEDS: HYDROCODONE-ACETAMIN 5-325 MG 1 TAB PO (11:40)
--- NOTE | 2024-07-26 11:45 | SUR.PHASEII ---
1110: On arrival to Phase II, patient tearful. Spouse at the bedside. States it feels like an anxiety attack. Patient takes 20 mg of Hydroxyzine at home for panic attacks. Administered 25 mg Hydroyzine per EMAR. Patient states it takes 30 minutes to work at home. Patient re-evaluated at 11:35 and she states she feels more under control. Patient eating and drinking. FLACC 0.
[2024-07-26] MEDS: ONDANSETRON 2 MG/ML inj 4 MG IVP (12:10)
== END 2024-07-26 13:00 | disposition home or self-care (01) ==
PROVIDERS: Anesthesiology; PCP Family Medicine; Visit Provider Surgery
PROC: 0FT44ZZ Resection of Gallbladder, Percutaneous Endoscopic Approach (ICD-10-PCS; CPT 47563; principal; 2024-07-26 09:00)
DX: K80.10 Calculus of gallbladder with chronic cholecystitis without obstruction (principal); K82.8 Other specified diseases of gallbladder
CPT/HCPCS: 47562; 00790; 36415; 80076; 81025; 88304; A9270; J0330; J0665; J0690; J1100; J1171; J2250; J2405; J2704; J2710; J3010; J7030